=== PATIENT | female | born 1990 | race Caucasian/White ===

== ENCOUNTER → 2016-08-20 | Outpatient (REF) | payer OTHER ==
[~2016-08-20] MED LIST: ACET50TA PO; IBUP-1114 PO; PRENTAB9 PO
== END ==
LOC: M LAB REF 13:36
PROVIDERS: ATTEND Advanced Practice Midwife
DX: Z12.4 Encounter for screening for malignant neoplasm of cervix (principal)

== ENCOUNTER → 2016-08-21 | Outpatient (CLI) | payer OTHER | LOC: M LAB 10:40 | PROVIDERS: ATTEND Advanced Practice Midwife | DX: N91.2 Amenorrhea, unspecified (principal) ==

== ENCOUNTER → 2016-11-25 | Outpatient (REF) | payer OTHER | LOC: M SFHCLERA 11:04 | PROVIDERS: ATTEND Nurse Practitioner Family | DX: R50.9 Fever, unspecified (principal) ==

== ENCOUNTER → 2017-03-30 | Outpatient (CLI) | payer OTHER ==
--- NOTE | 2017-03-30 20:25 | REP ---
Clinical: Paraspinal muscular pain . Technique: AP, lateral, flexion/extension, bilateral oblique, and open-mouth views. Findings: Alignment and lordosis is maintained. There is no evidence for acute fracture / compression injury or subluxation. Minimal irregularity at the C6-7 end plates and disc space suggested and should be correlated clinically. Otherwise, no further significant degenerative changes are appreciated. Oblique views demonstrate patent neural foramen. Open mouth view demonstrates normal C1-C2 articulation and odontoid process. Impression: Minimal degenerative disc disease at the C6-7 level cannot be excluded. Otherwise unremarkable examination. Signed by Ronn Carballo MD 03/30/2017 08:17 P
--- NOTE | 2017-03-30 20:29 | REP ---
Clinical: Acute right-sided lower back pain . Technique: AP, lateral, bilateral oblique, and coned-down views. Findings: Alignment and lordosis is maintained. The vertebral bodies including transverse process and spinous processes are intact and normal. There is no evidence for acute fracture / compression injury or subluxation. No evidence for spondylolysis or spondylolisthesis. No significant degenerative change is noted. Impression: Normal lumbosacral spine radiograph series. Signed by Ronn Carballo MD 03/30/2017 08:21 P
== END ==
LOC: M LRY 15:50
PROVIDERS: ATTEND Family Medicine
DX: M62.838 Other muscle spasm (principal); M54.5 Low back pain

== ENCOUNTER → 2017-08-20 | Outpatient (CLI) | payer OTHER | LOC: M RAD 14:56 | DX: M51.34 Other intervertebral disc degeneration, thoracic region (principal); M54.5 Low back pain | CPT/HCPCS: 72141 ==

== ENCOUNTER 2018-03-18 11:45 | Day surgery (SDC) | payer OTHER ==
[2018-03-18] MEDS: LR 1,000 ML IV (06:00)
[~2018-03-18 11:45] MED LIST changes: -ACET50TA PO; -IBUP-1114 PO; +KETOROLAC 60 MG/2 ML VIAL (J1885) As Ordered; +LIDOCAINE 2% INJ 100 MG/5 ML SDV (FOR ANES.) As Ordered; +MIDAZOLAM INJ 2 MG/2 ML VIAL (J2250) As Ordered; +ONDANSETRON 4MG/2ML VIAL (J2405) As Ordered; -PRENTAB9 PO; +PROPOFOL 200 MG/20 ML VIAL As Ordered; +dexameTHASONE 4 MG/ML 1ML VIAL (J1100) As Ordered; +fentaNYL 100 MCG/2 ML INJECTION (J3010) As Ordered
[2018-03-18 12:14] LABS: CONTROL LINE UCG INT CTR LINE PRESENT; URINE PREG TEST NEGATIVE (NEGATIVE)
[2018-03-18] MEDS ORDERED: ROCURONIUM BROMIDE 50 MG/5 ML VIAL As Ordered (12:42)
[2018-03-18] MEDS ORDERED: fentaNYL 100 MCG/2 ML INJECTION (J3010) As Ordered ×2 (13:33→15:12)
[2018-03-18] MEDS: ONDANSETRON 4MG/2ML VIAL (J2405) IV (13:50)
[2018-03-18] MEDS ORDERED: SUGAMMADEX SODIUM 500 MG/5 ML VIAL (BRIDION) As Ordered (14:11)
[2018-03-18] MEDS: BUPIVACAINE LIPOSOME/PF 1.3% 20 ML VIAL (13.3MG/ML)(EXPAREL) As Ordered (14:13)
[2018-03-18] MEDS: BUPIVACAINE HCL 0.5% 30 ML VIAL As Ordered (14:29)
[2018-03-18] MEDS ORDERED: ePHEDrine SULFATE 25 MG/5 ML(5MG/ML) SYRINGE As Ordered (14:53)
[2018-03-18] MEDS ORDERED: LIDOCAINE 2% INJ 100 MG/5 ML SDV (FOR ANES.) As Ordered (14:53)
[2018-03-18] MEDS ORDERED: PERCOCET 5MG/325MG TAB As Ordered (14:56)
[2018-03-18] MEDS ORDERED: ONDANSETRON 4MG/2ML VIAL (J2405) As Ordered (14:56)
[2018-03-18] MEDS: PERCOCET 5MG/325MG TAB PO ×2 (15:00→15:52)
[2018-03-18] MEDS ORDERED: METOCLOPRAMIDE INJ 10MG/2ML VIAL (J2765) IV (15:00)
[2018-03-18] MEDS ORDERED: ACETAMINOPHEN TAB 650MG DOSE (2X325MG) PO (15:00)
[2018-03-18] MEDS ORDERED: NORCO, ANEXSIA 5/325MG TABLET (HYDROcodone/ACETAMINOPHEN) PO (15:00)
[2018-03-18] MEDS ORDERED: IBUPROFEN 600 MG TAB PO (15:00)
[2018-03-18] MEDS ORDERED: LR 1,000 ML IV (15:00)
[2018-03-18] MEDS: fentaNYL 100 MCG/2 ML INJECTION (J3010) IV ×2 (15:13→15:18)
[2018-03-18] MEDS ORDERED: DOCUSATE SODIUM 100 MG CAP PO (21:00)
== END 2018-03-18 15:56 | disposition home or self-care (01) ==
LOC: M SDC 11:45
DX: K64.8 Other hemorrhoids (principal)
CPT/HCPCS: 46260

== ENCOUNTER → 2018-05-27 | Outpatient (REF) | payer OTHER | LOC: M LAB REF 17:10 | DX: D22.4 Melanocytic nevi of scalp and neck (principal) ==

== ENCOUNTER → 2018-06-05 | Outpatient (REF) | payer OTHER | LOC: M LAB REF 21:27 | DX: J02.9 Acute pharyngitis, unspecified (principal) ==